=== PATIENT | male | born 1950 | race African-American/Black ===

== ENCOUNTER 2016-11-19 12:11 | Emergency (ER) | payer OTHER ==
[2016-11-19 12:16] VITALS: BMI 29.6
--- NOTE | 2016-11-19 13:32 | DR.GENAD ---
HPI - PCP Primary Care Physician: DELL - Complaint/Symptoms Chief Complaint:: WILL STATED HE WENT TO HIS DOCTOR THIS MORNING AND WAS TOLD HE HAD HIGH BLOOD PRESSURE. HE LEFT THERE WENT TO [facility] AND HAD IT CHECKED AND WAS TOLD IT WAS HIGH AND TO COME TO THE ER. HE STATED HIS DOCTOR CHANGED HIS DOSAGE ON HIS MEDS 2 WEEKS AGO. - Source History Provided: Patient - Mode of Arrival Mode of Arrival: Ambulatory - Timing Onset of Chief Complaint: 11/19/16 PMH - PMH Past Medical History: Yes Past Medical History: GERD, Hypertension Past Surgical History: No - Family History History of Family Medical Conditions: Yes Family Medical History: Diabetes Mellitus, Cancer - Social History Does patient currently use any type of tobacco product: No Have you used tobacco products in the last 12 months: No Type of Tobacco Use: None Does any household member use tobacco: No Alcohol Use: None Do you use any recreational Drugs:: No Lives With: Family Lives Where: Home - infectious screening In the last 2 months have you had wt loss of >10#?: NO Have you had fever, night sweats or hemotysis?: No Have you traveled outside the country in the last 6 months?: No Isolation: Standard ROS - Review of Systems Eyes: No Symptoms Reported ENTM: No Symptoms Reported Respiratoy: No Symptoms Reported Cardiovascular: No Symptoms Reported Gastrointestinal/Abdominal: No Symptoms Reported Genitourinary: No Symptoms Reported Neurological: No Symptoms Reported Musculoskeletal: No Symptoms Reported Integumentary: No Symptoms Reported Hematologic/Lymphatic: No Symptoms Reported Endocrine: No Symptoms Reported Psychiatric: No Symptoms Reported All Other Systems: Reviewed and Negative PE - Vital Signs Vitals: Pulse Rate [Right Brachial] 95 Blood Pressure [Right Arm] 131/94 Blood Pressure 144/86 - General Limitations: No Limitations General Appearance: Alert, In No Apparent Distress - Head Head Exam: Normal Inspection, Atraumatic - Eyes Eye exam: Normal Appearance, PERRL, EOMI - ENT ENT Exam: Normal Exam External Ear Exam: Normal External Inspection TM/Canal Exam: Bilateral Normal Nose Exam: Normal Nose Exam Mouth Exam: Normal Inspection Throat Exam: Normal Inspection - Neck Neck Exam: Normal Inspection - Chest Chest Inspection: Normal Inspection - Respiratory Respiratory Exam: Normal Lung Sounds Bilat Respiratory Exam: Bilateral Clear to Auscultation - Cardiovascular Cardiovascular Exam: Regular Rate - Abdominal Exam Abdominal Exam: Normal Inspection Abdominal Tenderness: negative: RUQ, RLQ, LUQ, LLQ, Epigastrium, Suprapubic, Diffuse, Mild, Moderate, Severe, Other - Extremities Extremities Exam: Normal Inspection, Full ROM - Back Back Exam: Normal Inspection - Neurologic Neurological Exam: Alert, Oriented X3, CN II-XII Intact - Psychiatric Psychiatric Exam: Normal Affect, Normal Mood - Skin Skin Exam: Warm, Dry, Intact, Normal Color Course - Reevaluation 1st: Improved - Diagnosis Discharge Problem: Elevated BP without diagnosis of hypertension - Discharge Plan Condition: Stable - Follow ups/Referrals Follow ups/Referrals: BABAK SHARPE [Primary Care Provider] - 3 days - Instructions
[2016-11-19] MEDS ORDERED: CATAPRES TAB 0.1 MG PO ONE (13:33)
[2016-11-19] MEDS ORDERED: CATAPRES TAB 0.1 MG ONE (13:41)
[2016-11-19 14:55] VITALS: BP 131/94
== END 2016-11-19 15:23 | disposition home or self-care (01) ==
LOC: ER 12:22
DX: R03.0 Elevated blood-pressure reading, without diagnosis of hypertension (principal)
CPT/HCPCS: 99282